=== PATIENT | male | born 1950 | race Caucasian/White ===

== ENCOUNTER 2019-09-11 07:30 | Day surgery (SDC) | payer OTHER ==
[2019-09-09 14:43] VITALS: BMI 25.5
[2019-09-11] MEDS ORDERED: LIDOCAINE HCL/PF 2% SDV 5ML VIAL ONE (07:58)
[2019-09-11] MEDS ORDERED: PROPOFOL 20 ML ONE ×2 (07:58)
[2019-09-11 08:33] VITALS: TEMP 98.2
[2019-09-11 10:49] VITALS: BP 120/64; PULSE 62
== END 2019-09-11 09:10 | disposition home or self-care (01) ==
LOC: FASU-ENDO 07:30
PROVIDERS: ATTEND Internal Medicine Gastroenterology
PROC: 0DJD8ZZ Inspection of Lower Intestinal Tract, Via Natural or Artificial Opening Endoscopic (ICD-10-PCS; principal; 2019-09-11 08:05)
DX: Z86.010 Personal history of colon polyps (principal); K57.30 Diverticulosis of large intestine without perforation or abscess without bleeding